=== PATIENT | female | born 1995 | race Caucasian/White ===

== ENCOUNTER 2016-08-20 18:34 | Inpatient (IN) | payer OTHER ==
[~2016-08-20 18:34] MED LIST: ROCURONIUM BROMIDE INJ 50 MG/5 ML VIAL IV ONE; SUCCINYLCHOLINE CHLORIDE INJ 200 MG/10 ML VIAL ONE
--- NOTE | 2016-08-20 19:22 | ER Document Report ---
ED Medical Screen (RME) - General Chief Complaint: Abdominal Pain Stated Complaint: ABDOMINAL PAIN Notes: Patient says she's been experiencing bilateral lower abdominal pain for about a week. Yesterday, it moved upward and centers now in the right upper quadrant, over the liver/gallbladder. The pain is worse if she moves or twists or coughs , but is better if she is laying down. Has been nauseated but not vomiting. She has had some diarrhea all week. Has not had blood in the diarrhea. Unaware of any fever at home. LMP ended about 3-4 days ago. On control pills. No abdominal surgeries. PMH: Depression/anxiety on Lexapro. TRAVEL OUTSIDE OF THE [place] IN LAST 30 DAYS: No Past Medical History Renal/ Medical History: Denies: Hx Peritoneal Dialysis Physical Exam - Vital signs Vitals: Temp Pulse Resp BP Pulse Ox 100.1 F 99 16 132/83 H 98 08/20/16 18:40 08/20/16 18:40 08/20/16 18:40 08/20/16 18:40 08/20/16 18:40 Course - Vital Signs Vital signs: Temp Pulse Resp BP Pulse Ox 100.1 F 99 16 132/83 H 98 08/20/16 18:40 08/20/16 18:40 08/20/16 18:40 08/20/16 18:40 08/20/16 18:40
[2016-08-20] MEDS ORDERED: MORPHINE SULFATE 10 MG/ML INJ IV ONE (20:19)
[2016-08-20] MEDS ORDERED: ONDANSETRON HCL INJ/PF 4 MG/2 ML SDV IV ONE (20:19)
--- NOTE | 2016-08-20 20:23 | ER Document Report ---
ED GI/ - General Chief Complaint: Abdominal Pain Stated Complaint: ABDOMINAL PAIN Mode of Arrival: Ambulatory Information source: Patient TRAVEL OUTSIDE OF THE [place] IN LAST 30 DAYS: No - HPI Patient complains to provider of: Abdominal pain Notes: 08/20/16 20:20 Patient rises complaints of abdominal pain for the last 5 days. She states that the pain started in her lower abdomen it was intermittent initially. States that his become more constant over the last 4 days and over the last 2 days she now has pain in the right lower and right upper abdomen. The pain is worse with movement as well as taking deep breaths. She has had nausea, she vomited a few weeks ago but has not vomited recently. She states that she has had diarrhea for the last 5 days. She denies any blood in her stool. She denies any prior abdominal surgeries. Last normal menstrual period ended 3 days ago. She is currently on control pills. She does report having irregular menses. She was unaware that she has a fever although she has noted have a fever here. She denies any chest pain or shortness of breath. She denies any rashes. No injury. She denies any dysuria or hematuria. No vaginal bleeding or discharge. She has no other complaints at this moment. Past Medical History - Social History Smoking Status: Unknown if Ever Smoked Family History: Reviewed & Not Pertinent Patient has suicidal ideation: No Patient has homicidal ideation: No Renal/ Medical History: Denies: Hx Peritoneal Dialysis Review of Systems - Review of Systems -: Yes All other systems reviewed and negative Physical Exam - Vital signs Vitals: Temp Pulse Resp BP Pulse Ox 100.1 F 99 16 132/83 H 98 08/20/16 18:40 08/20/16 18:40 08/20/16 18:40 08/20/16 18:40 08/20/16 18:40 - Notes Notes: GENERAL: alert, cooperative, nontoxic, no distress. HEAD: normocephalic, atraumatic EYES: conjunctiva pink without discharge, no external redness or swelling. EARS: no external swelling, no external redness NOSE: atraumatic, no external swelling MOUTH/THROAT: mucous membranes moist and pink, posterior pharynx without erythema, swelling, exudate. No trismus or drooling. NECK: soft, supple, full range of motion, no meningismus. CHEST: no distress, lungs clear and equal throughout. No wheezing, rales, rhonchi. CARDIAC: regular rate and rhythm, no murmur, normal capillary refill, normal pulses. No peripheral edema noted. ABDOMEN: Soft, tenderness palpation to the right lower mid and upper abdomen. Mild voluntary guarding. No rebound tenderness. no hepatosplenomegaly or mass. BACK: full range of motion, no CVA tenderness. EXTREMITIES: full range of motion of all extremities. No redness, no swelling. NEURO: alert and oriented 3, no focal deficits, full range of motion of all extremities. PYSCH: appropriate mood, affect. Patient is cooperative. SKIN: pink, warm, dry, no rash. Course - Re-evaluation Re-evalutation: 08/20/16 22:02 Patient's nontoxic with stable vitals. Patient arrives with complaints of right -sided abdominal pain this progressively worsened over the last few days. She did have an elevated white count of 16. Her LFTs are normal. Lipase is normal. CT abdomen and pelvis shows inflammation in the right lower quadrant. The appendix was not visualized, this is concerning for acute appendicitis. Discussed the case with Dr. Leonardo of surgery. He will evaluate the patient at this time. 08/20/16 22:16 Patient seen and evaluated by Dr. Leonardo surgery. He will admit the patient for further evaluation and management. Patient is aware of this. - Vital Signs Vital signs: Temp Pulse Resp BP Pulse Ox 100.1 F 99 16 132/83 H 98 08/20/16 18:40 08/20/16 18:40 08/20/16 18:40 08/20/16 18:40 08/20/16 18:40 - Laboratory Result Diagrams: 08/20/16 20:35 08/20/16 20:35 Laboratory results interpreted by me: 08/20/16 08/20/16 20:35 21:05 WBC 16.4 H Seg Neutrophils % 86.1 H Lymphocytes % 5.8 L Absolute Neutrophils 14.1 H Urine Ketones 20 H Urine Blood MODERATE H Urine Urobilinogen 2.0 H Ur Leukocyte Esterase MODERATE H Urine Ascorbic Acid 40 H - Diagnostic Test Radiology reviewed: Image reviewed, Reports reviewed - Inflammation in the right lower quadrant concerning for acute appendicitis without direct visualization of the appendix. Discharge - Discharge Clinical Impression: Acute appendicitis Qualifiers: Acute appendicitis type: with localized peritonitis Qualified Code(s): K35.3 - Acute appendicitis with localized peritonitis Condition: Stable Disposition: ADMITTED INPATIENT Admitting Provider: Surgicalist - Dr Leonardo Unit Admitted: Surgical Floor
[2016-08-20 20:45] LABS: ABSOLUTE EOSINOPHILS # (AUTO) 0.1 10^3/uL (0.0-0.6); ABSOLUTE MONOCYTES (AUTO) 1.1 10^3/uL (0.1-1.4); ABSOLUTE NEUT (AUTO) 14.1 10^3/uL (1.7-8.2); BASOPHILS % (AUTO) 0.2 % (0-2); EOSINOPHILS % (AUTO) 0.9 % (0-6); HEMATOCRIT 38.7 % (36.0-47.0); HEMOGLOBIN 12.9 g/dL (12.0-15.5); LYMPHOCYTES % (AUTO) 5.8 % (13-45); MEAN CORPUSCULAR HEMOGLOBIN 27.9 pg (27.0-33.4); MEAN CORPUSCULAR HGB CONC 33.4 g/dL (32.0-36.0); MEAN CORPUSCULAR VOLUME 84 fl (80-97); RED BLOOD COUNT 4.64 10^6/uL (3.72-5.28); SEGMENTED NEUTROPHILS % (AUTO) 86.1 % (42-78); WHITE BLOOD COUNT 16.4 10^3/uL (4.0-10.5)
[2016-08-20 20:58] LABS: ALANINE AMINOTRANSFERASE 22 U/L (9-52); ALBUMIN 4.1 g/dL (3.5-5.0); ALKALINE PHOSPHATASE 108 U/L (38-126); ANION GAP 16 (5-19); ASPARTATE AMINO TRANSFERASE 18 U/L (14-36); BILIRUBIN,DIRECT 0.3 mg/dL (0.0-0.4); BILIRUBIN,TOTAL 0.6 mg/dL (0.2-1.3); BLOOD UREA NITROGEN 8 mg/dL (7-20); CALCIUM 9.8 mg/dL (8.4-10.2); CARBON DIOXIDE 25 mmol/L (22-30); CHLORIDE 103 mmol/L (98-107); CREATININE RESULT 0.78 mg/dL (0.52-1.25); GLUCOSE 102 mg/dL (75-110); LIPASE 23.9 U/L (23-300); POTASSIUM 4.3 mmol/L (3.6-5.0); SODIUM 143.5 mmol/L (137-145); TOTAL PROTEIN 7.6 g/dL (6.3-8.2)
[2016-08-20] MEDS ORDERED: NORMAL SALINE 1000 ML 1,000 ML IV ONE (21:05)
[2016-08-20 21:24] LABS: APPEARANCE,URINE SLIGHTLY-CLOUDY; BILIRUBIN,URINE NEGATIVE (NEGATIVE); GLUCOSE, URINE NEGATIVE (NEGATIVE); KETONES,URINE 20 mg/dL (NEGATIVE); LEUKOCYTE ESTERASE,URINE MODERATE (NEGATIVE); NITRITE,URINE NEGATIVE (NEGATIVE); PROTEIN,URINE NEGATIVE (NEGATIVE); URINE SPECIFIC GRAVITY 1.025
--- NOTE | 2016-08-20 22:30 | PDOC H&P ---
History of Present Illness Patient complains of: Abdominal pain History of Present Illness: YANETH CASE is a 21 year old female who presents to the emergency department also [facility] complaining of grossly one-week history of abdominal pain. The pain was originally in her pelvis and left side. 48 hours ago she developed more exquisite right lower quadrant pain and right upper quadrant pain. This was associated with some anorexia but no nausea or vomiting. She denies previous episodes, history of trauma ; she has had loose bowel movements for approximate 48 hours. She was seen in the emergency department where she was found to have right sided tenderness, a leukocytosis and a CT scan without oral contrast suggesting possible inflammation in the right lower quadrant. Surgery was consulted and she was advised admission. Past Surgical History Past Surgical History: Reports: Other - Repair of her right iliopsoas muscle Social History Smoking Status: Unknown if Ever Smoked Drugs: None Family History Family History: Reviewed & Not Pertinent Parental Family History Reviewed: Yes Children Family History Reviewed: Yes Sibling(s) Family History Reviewed.: Yes Review of Systems Constitutional: ABSENT: chills, fever(s), headache(s), weight gain, weight loss Eyes: ABSENT: visual disturbances Ears: ABSENT: hearing changes Cardiovascular: ABSENT: chest pain, dyspnea on exertion, edema, orthropnea, palpitations Respiratory: ABSENT: cough, hemoptysis Gastrointestinal: PRESENT: other - As per history of present illness Neurological: ABSENT: abnormal gait, abnormal speech, confusion, dizziness, focal weakness, syncope Psychiatric: ABSENT: anxiety, depression, homidical ideation, suicidal ideation Endocrine: ABSENT: cold intolerance, heat intolerance, polydipsia, polyuria Physical Exam Vital Signs: Temp Pulse Resp BP Pulse Ox 100.1 F 99 16 132/83 H 98 08/20/16 18:40 08/20/16 18:40 08/20/16 18:40 08/20/16 18:40 08/20/16 18:40 Intake & Output 08/19/16 08/20/16 08/21/16 06:59 06:59 06:59 Weight 76 kg General appearance: PRESENT: no acute distress Head exam: PRESENT: normocephalic Eye exam: PRESENT: EOMI Ear exam: PRESENT: normal external ear exam Neck exam: PRESENT: full ROM Respiratory exam: PRESENT: clear to auscultation gamal Cardiovascular exam: PRESENT: RRR Pulses: PRESENT: normal carotid pulses GI/Abdominal exam: PRESENT: other - No distention no rigidity no peritoneal signs; minimally to moderately tender right side of the abdomen including the right lower quadrant as well as the right upper quadrant. Extremities exam: PRESENT: full ROM Neurological exam: PRESENT: alert, awake, oriented to person, oriented to place , oriented to time, oriented to situation Psychiatric exam: PRESENT: appropriate affect Skin exam: PRESENT: dry Results Laboratory Results: 08/20/16 20:35 08/20/16 20:35 08/20/16 08/20/16 08/20/16 20:35 20:35 20:35 WBC 16.4 H RBC 4.64 Hgb 12.9 Hct 38.7 MCV 84 MCH 27.9 MCHC 33.4 RDW 14.0 Plt Count 368 Seg Neutrophils % 86.1 H Lymphocytes % 5.8 L Monocytes % 7.0 Eosinophils % 0.9 Basophils % 0.2 Absolute Neutrophils 14.1 H Absolute Lymphocytes 1.0 Absolute Monocytes 1.1 Absolute Eosinophils 0.1 Absolute Basophils 0.0 Sodium 143.5 Potassium 4.3 Chloride 103 Carbon Dioxide 25 Anion Gap 16 BUN 8 Creatinine 0.78 Est GFR ( Amer) > 60 Est GFR (Non-Af Amer) > 60 Glucose 102 Calcium 9.8 Total Bilirubin 0.6 AST 18 ALT 22 Alkaline Phosphatase 108 Total Protein 7.6 Albumin 4.1 Lipase 23.9 Serum HCG, Qual NEGATIVE Urine Color Urine Appearance Urine pH Ur Specific Leoti Urine Protein Urine Glucose (UA) Urine Ketones Urine Blood Urine Nitrite Ur Leukocyte Esterase Urine WBC (Auto) Urine RBC (Auto) 08/20/16 21:05 WBC RBC Hgb Hct MCV MCH MCHC RDW Plt Count Seg Neutrophils % Lymphocytes % Monocytes % Eosinophils % Basophils % Absolute Neutrophils Absolute Lymphocytes Absolute Monocytes Absolute Eosinophils Absolute Basophils Sodium Potassium Chloride Carbon Dioxide Anion Gap BUN Creatinine Est GFR ( Amer) Est GFR (Non-Af Amer) Glucose Calcium Total Bilirubin AST ALT Alkaline Phosphatase Total Protein Albumin Lipase Serum HCG, Qual Urine Color YELLOW Urine Appearance SLIGHTLY-CLOUDY Urine pH 5.0 Ur Specific Le[place] 1.025 Urine Protein NEGATIVE Urine Glucose (UA) NEGATIVE Urine Ketones 20 H Urine Blood MODERATE H Urine Nitrite NEGATIVE Ur Leukocyte Esterase MODERATE H Urine WBC (Auto) 22 Urine RBC (Auto) 4 Impressions: Abdomen/Pelvis CT 08/20/16 20:19 IMPRESSION: Right lower quadrant inflammation. The appendix is not definitively seen but the appearance is highly suspicious for acute appendicitis. Surgeons E Polanco: There is no oral contrast. This study is limited in this regard. There is no free fluid peritoneal cavity no free air and no abscess. I reviewed the above with Dr. Nanda Garcia Assessment & Plan - Diagnosis (1) Acute appendicitis Qualifiers: Acute appendicitis type: with localized peritonitis Qualified Code(s): K35.3 - Acute appendicitis with localized peritonitis Plan: 1. The impression is acute appendicitis however the patient is having right upper quadrant pain as well. I suggested admission, keep nothing by mouth, hold pain medication, and reexamine the patient in 1 hour. 2. We will obtain CT scan with oral contrast to assist in the diagnosis. - Time Time Spent: 50 to 70 Minutes Critical Time spent with patient: 15-24 minutes Medications reviewed and adjusted accordingly: Yes Anticipated discharge: Home - Inpatient Certification Medical Necessity: Need For IV Fluids, Need for Pain Control, Need for IV Antibiotics
[2016-08-20] MEDS ORDERED: AMPICILLIN SOD/SULBACTAM 3 GM VIAL IV PRN (22:38)
[2016-08-20] MEDS: POTASSI CL 20 MEQ/D5LR 1L 1,000 ML IV PRN (23:36)
[2016-08-21] MEDS ORDERED: POTASSI CL 20 MEQ/D5LR 1L 20 MEQ/1,000 ML RTUINJ IV ONE (05:20)
[2016-08-21] MEDS: POTASSI CL 20 MEQ/D5LR 1L 1,000 ML IV PRN (06:15)
[2016-08-21] MEDS: AMPICILLIN SODIUM/SULBACTAM NA 3 GM in NORMAL SALINE 100 ML IV SCH ×3 (06:15→21:13)
[2016-08-21] MEDS: MORPHINE SULFATE 10 MG/ML INJ IV PRN ×3 (07:35→23:47)
[2016-08-21] MEDS ORDERED: FENTANYL CITRATE INJ/PF 100 MCG/2 ML AMPUL ONE ×2 (15:50→17:57)
[2016-08-21] MEDS ORDERED: ACETAMINOPHEN 100 ML IV ONE (15:51)
[2016-08-21] MEDS ORDERED: BUPIVACAINE HCL 0.25 % INJ/PF (2.5 MG/1 ML) 30 ML VIAL ONE (15:51)
[2016-08-21] MEDS ORDERED: MORPHINE SULFATE 10 MG/ML INJ ONE (15:51)
[2016-08-21] MEDS ORDERED: MIDAZOLAM 2 MG/2 ML INJ ONE (15:51)
[2016-08-21] MEDS ORDERED: PROPOFOL INJ 200 MG/20 ML VIAL IV ONE (15:52)
[2016-08-21] MEDS ORDERED: PROMETHAZINE HCL INJ 25 MG/1 ML VIAL IV PRN (16:44)
[2016-08-21] MEDS ORDERED: MORPHINE SULFATE 10 MG/ML INJ IV PRN (16:44)
[2016-08-21] MEDS ORDERED: FENTANYL CITRATE INJ/PF 100 MCG/2 ML AMPUL IV PRN ×3 (16:44)
[2016-08-21] MEDS ORDERED: DIPHENHYDRAMINE HCL 50 MG/ML VIAL IV PRN (16:44)
[2016-08-21] MEDS ORDERED: ONDANSETRON HCL INJ/PF 4 MG/2 ML SDV IV PRN (16:44)
[2016-08-21] MEDS ORDERED: MEPERIDINE HCL/PF INJ 25 MG/1 ML DISP.SYRIN IV PRN (16:44)
[2016-08-21] MEDS ORDERED: FENTANYL CITRATE INJ/PF 100 MCG/2 ML AMPUL INJ ONE (18:08)
[2016-08-21] MEDS ORDERED: NORMAL SALINE 1000 ML 1,000 ML IV PRN (18:14)
[2016-08-21] MEDS ORDERED: METRONIDAZOLE 500 MG/NS RTU 100 ML IV ONE (18:16)
[2016-08-21] MEDS ORDERED: HYDROMORPHONE HCL INJ/PF 2 MG/ML AMPULE IV PRN ×2 (18:16→18:17)
--- NOTE | 2016-08-21 18:54 | OPERATIVE REPORT E ---
Operative Report NAME: YANETH CASE : 1995 AGE: 21Y DATE OF SURGERY: 08/21/2016 ROOM: 210 PREOPERATIVE DIAGNOSIS: Right pelvic mass, possible appendiceal phlegmon. POSTOPERATIVE DIAGNOSIS: Pelvic mass likely from inflamed fallopian tube due to pelvic inflammatory disease. OPERATION: 1. Laparoscopic appendectomy. 2. Exploration of the pelvis and the right upper quadrant. SURGEON: ANNI MUÑOZ M.D. ANESTHESIA: General. INDICATIONS: This is a 21-year-old female with a week duration of lower abdominal pain. The past 2 day pains are more in the right lower quadrant and radiate to the right upper quadrant. Her white count is elevated to 16,000 but no fever. She had a CT scan and ultrasound of the pelvis and showed mass in the right pelvis not associated with the right ovary. It appears to be a focal infectious process or inflammatory process. Rule out appendiceal phlegmon. PROCEDURE: After adequate general anesthesia, the abdomen was then prepped and draped in the usual sterile fashion. An infraumbilical small midline incision was made and the fascia grasped with Dilcia clamps and divided. Chanel trocar was then inserted into the peritoneal cavity and CO2 insufflated up to a pressure of 15 mmHg through the trocar. Next, 2 other trocars were placed, a 5 mm in the suprapubic area and a 12 mm in the left lower quadrant. There was some fluid along the right pelvic gutter. This was suctioned out. There were some adhesions that appear to be from the right fallopian tube to the small bowel that were lysed bluntly. This may be the area seen on the CT scan and ultrasound. The cecum was somewhat adherent to the lateral gutter, and this was also bluntly lysed and then more fluid noted around this area. The appendix was then identified and showed minimal, if ever, inflammation. An appendectomy was then carried out with the use of stapler. The mesoappendix divided and cauterized with harmonic renetta. It was then placed in a bag and pulled out through the left lower quadrant port. At this point, the research quality assurance analyst, Dr. Rivera, was asked to come to the room. At this time, the right fallopian tube noted to be moderately inflamed and no drainage from the area of the fimbriae; however, the left fallopian tube noted to be more inflamed than the right side indicating patient likely had pelvic inflammatory disease. Cultures again were obtained from the pelvis. Fluid also around the area of the liver was then suctioned out. Fluid was greenish brown but relatively light in consistency. The area was then irrigated with saline solution. The appendiceal stump was inspected and no evidence of bleeding. All the trocars were then removed and CO2 allowed to come out primarily through the umbilical fascial defect. Fascial defect was then closed with [id number] suture using 0 Vicryl and all the skin incisions closed with running subcuticular closure using 4-0 Vicryl undyed. Dermabond was used as a dressing on top of all the incisions. The patient tolerated the procedure well, brought to the recovery room in satisfactory condition. Needle, instrument, and sponge counts were all correct. Estimated blood loss was minimal. DICTATING PHYSICIAN: ANNI MUÑOZ M.D. [id number] PHY#: [id number] ID: [id number] JOB#: [id number] ACCT: [id number] cc:ANNI MUÑOZ M.D. >
[2016-08-21] MEDS: METRONIDAZOLE 500 MG/NS RTU 100 ML IV SCH (21:11)
[2016-08-21] MEDS: DOXYCYCLINE HYCLATE 100 MG in DEXTROSE 5%-WATER 250 ML IV SCH (21:12)
[2016-08-22] MEDS: MORPHINE SULFATE 10 MG/ML INJ IV PRN ×3 (02:51→13:48)
[2016-08-22] MEDS: METRONIDAZOLE 500 MG/NS RTU 100 ML IV SCH ×3 (06:04→21:20)
[2016-08-22] MEDS: AMPICILLIN SODIUM/SULBACTAM NA 3 GM in NORMAL SALINE 100 ML IV SCH ×3 (06:09→21:21)
--- NOTE | 2016-08-22 08:52 | PDOC PROGRESS REPORT ---
Subjective Progress Note for:: 08/22/16 Subjective:: Pt is a 21 yo A1 s/p appe for RLQ pain. At surgery there was evidence for pid. The pelvic cultures do not grow out anything yet. Will will send a PCR from her urine today as this should be positive if there is detectible GC/ Chlam. She is and has had one partner for 6 years and has been on nexplanon for most of that time. This history would not be typical for PID. Physical Exam - Physical Exam Vital Signs: Temp Pulse Resp BP Pulse Ox 98.8 F 105 H 22 H 132/70 H 94 08/22/16 03:56 08/22/16 03:56 08/22/16 03:56 08/22/16 03:56 08/22/16 03:56 Intake & Output 08/21/16 08/22/16 08/23/16 06:59 06:59 06:59 Intake Total 473 3350 Output Total 1900 2625 Balance -1427 725 Weight 75.1 kg 75 kg General appearance: PRESENT: no acute distress, cooperative Head exam: PRESENT: atraumatic - Abdominal exam is post op with pain from surgery. Result Impressions: Abdomen/Pelvis CT 08/21/16 00:00 IMPRESSION: 5.7 cm heterogeneous soft tissue mass of the right paracentral pelvis. Can't exclude an ovarian neoplasm or appendiceal lesion/phlegmon. Correlation with pelvic sonogram recommended. Pelvis Ultrasound 08/21/16 00:00 IMPRESSION: 1. Free fluid in the cul-de-sac. 2. The right lower quadrant soft tissue mass does not appear to be associated with the right ovary. Focal infectious or inflammatory process is thought to be most likely based on ultrasound as well as CT findings. Assessment & Plan - Diagnosis (1) Acute appendicitis Qualifiers: Acute appendicitis type: with localized peritonitis Qualified Code(s): K35.3 - Acute appendicitis with localized peritonitis Is this a current diagnosis for this admission?: YesPlan: Continue pain control and antibiotics. Send PCR for GC and Chlam. Check a cbc today as well.
[2016-08-22] MEDS: DOXYCYCLINE HYCLATE 100 MG in DEXTROSE 5%-WATER 250 ML IV SCH ×2 (08:53→21:22)
[2016-08-22 09:51] LABS: ABSOLUTE EOSINOPHILS # (AUTO) 0.1 10^3/uL (0.0-0.6); ABSOLUTE MONOCYTES (AUTO) 0.8 10^3/uL (0.1-1.4); ABSOLUTE NEUT (AUTO) 10.7 10^3/uL (1.7-8.2); BASOPHILS % (AUTO) 0.3 % (0-2); EOSINOPHILS % (AUTO) 0.6 % (0-6); HEMATOCRIT 34.3 % (36.0-47.0); HEMOGLOBIN 11.4 g/dL (12.0-15.5); HGB HCT DIFFERENCE -0.1; LYMPHOCYTES % (AUTO) 7.9 % (13-45); MEAN CORPUSCULAR HEMOGLOBIN 27.8 pg (27.0-33.4); MEAN CORPUSCULAR HGB CONC 33.3 g/dL (32.0-36.0); MEAN CORPUSCULAR VOLUME 83 fl (80-97); MONOCYTES % (AUTO) 6.1 % (3-13); RED BLOOD COUNT 4.11 10^6/uL (3.72-5.28); RED CELL DISTRIBUTION WIDTH 13.3 % (11.5-14.0); SEGMENTED NEUTROPHILS % (AUTO) 85.1 % (42-78); WHITE BLOOD COUNT 12.6 10^3/uL (4.0-10.5)
[2016-08-22 10:56] LABS: CHLAM PCR DETECTED (NOT DETECT)
--- NOTE | 2016-08-22 19:24 | PROGRESS NOTE E ---
Progress Note NAME: YANETH CASE : 1995 AGE: 21Y DATE: 08/22/2016 ROOM: 210 SUBJECTIVE: At the present time she is still complaining of 5/10 incisional pains requiring parenteral pain medications. She, however, is tolerating her diet well. Her white count went down to 12.6 from 16.4. Her peritoneal fluid did not grow any bacteria from yesterday. PLAN: We will continue observing her and continue IV antibiotics b.i.d. We will switch her to p.o. antibiotic tonight and hopefully can be discharged tomorrow and also have official reports from the cultures from the OR. DICTATING PHYSICIAN: ANNI MUÑOZ M.D. [id number] PHY#: [id number] ID: [id number] JOB#: [id number] ACCT: [id number] cc: >
[2016-08-22] MEDS: OXYCODONE-ACETAMINOPHEN 5-325 MG TABLET PO PRN (20:05)
[2016-08-23] MEDS: AMPICILLIN SODIUM/SULBACTAM NA 3 GM in NORMAL SALINE 100 ML IV SCH (05:18)
[2016-08-23] MEDS: METRONIDAZOLE 500 MG/NS RTU 100 ML IV SCH (05:19)
[2016-08-23] MEDS: OXYCODONE-ACETAMINOPHEN 5-325 MG TABLET PO PRN (05:19)
[2016-08-23] MEDS: DOXYCYCLINE HYCLATE 100 MG in DEXTROSE 5%-WATER 250 ML IV SCH (09:41)
[2016-08-23 11:19] VITALS: BP 136/79
--- NOTE | 2016-08-29 17:24 | DISCHARGE SUMMARY E ---
Discharge Summary NAME: YANETH CASE : 1995 AGE: 21Y ADMITTED: 08/20/2016 DISCHARGED: 08/23/2016 FINAL DIAGNOSIS: Pelvic inflammatory disease/Chlamydia infection. PROCEDURE DONE: Laparoscopic appendectomy and diagnostic laparoscopy. SUMMARY: This is a 21-year-old female with complaints of right lower quadrant pains. She had a CAT scan of the abdomen which showed a mass in the right lower quadrant. The appendix was not visualized. A subsequent pelvic ultrasound showed an inflammatory mass, possible appendiceal phlegmon. Her white count was elevated to 16.4 and she remained tender in the right lower quadrant. She was then taken to the OR on 08/21/2016 for diagnostic laparoscopy and appendectomy. She was found to have inflamed fallopian tubes with fluid in the cul-de-sac and near the right upper quadrant around the liver which would explain her tenderness at this site also with the right lower quadrant tenderness. A [employer]OR NURSES' REGISTRY consultation in the OR was done with Dr. Rivera who agreed that the patient has pelvic inflammatory disease. Postoperatively she did well. A blood test confirmed that she does have Chlamydia infection. She was then continued on doxycycline and Flagyl per [employer]ES' REGISTRY recommendation. She was then discharged improved on 08/24/2016. She was tolerating a regular diet and abdominal pains have diminished considerably. She was discharged on p.o. doxycycline and Flagyl for the next 10 days. She will be followed in the gynecology office of Dr. Rivera. Her sexual partner was already consulted by physician for also possible Chlamydia infection. The patient is to have regular diet. As far as activity is concerned, no lifting for the next 3 weeks, but may resume regular activity after about 4 weeks. DICTATING PHYSICIAN: ANNI MUÑOZ M.D. [id number] PHY#: [id number] ID: [id number] JOB#: [id number] ACCT: [id number] cc:Cole VARGAS M.D. >
== END 2016-08-23 12:08 | disposition home or self-care (01) | DRG 340 ==
LOC: ER 18:34 → UNDOADMIN 22:23 → EH 22:23 → 2N 23:47
PROVIDERS: ATTEND Surgery
PROC: 0DTJ4ZZ Resection of Appendix, Percutaneous Endoscopic Approach (ICD-10-PCS; principal; 2016-08-21 16:45)
DX: K35.3 Acute appendicitis with localized peritonitis (principal); N73.9 Female pelvic inflammatory disease, unspecified; N73.6 Female pelvic peritoneal adhesions (postinfective); N83.201 Unspecified ovarian cyst, right side; F32.9 Major depressive disorder, single episode, unspecified; Z79.899 Other long term (current) drug therapy
CPT/HCPCS: 36415; 74176; 74177; 76856; 80053; 81001; 83690; 840; 84703; 85025; 87070; 87075; 87205; 87491; 87591; 88304; 96361; 96374; 96375; 99285; J0131; J0295; J0330; J2250; J2270; J2405; J2704; J3010; J3480; J3490; J7030; J7060